=== PATIENT | male | born 1990 | race Caucasian/White ===

== ENCOUNTER 2023-01-10 00:09 | Emergency (ER) | payer BC, SELFPAY ==
[2023-01-10 00:13] VITALS: BP 158/92; BP 176/105; PULSE 92; PULSE 97; RESP 18; TEMP 36.7; O2SAT 97; O2SAT 98
--- NOTE | 2023-01-10 00:39 | CRLHL7_ITS ---
For Patients: As a result of the Cures Act, medical imaging exams and procedure reports are released immediately into your electronic medical record. You may view this report before your referring provider. If you have questions, please contact your health care provider. INDICATION: Fall, twisting, non-impact, knee injury TECHNIQUE: Knee radiograph 3 views left COMPARISON: None FINDINGS: Bone: No acute fractures or aggressive bone lesions are identified. Joint: The medial, lateral, and patellofemoral compartments are unremarkable. No significant knee effusion is seen. Soft tissue: Unremarkable. No radiopaque foreign bodies are seen. IMPRESSION: 1. No acute osseous injuries or abnormalities are noted. Dictated by: Mushtaq Srivastava MD @ 01/10/2023 01:13:05 (Electronically Signed)
--- NOTE | 2023-01-10 01:32 | ED.GENADULT ---
HPI - General Adult General Date Seen: 01/10/23 Chief complaint: Extremity Pain/Injury, Lower Stated complaint: left knee injury Time Seen by Provider: 01/10/23 00:26 Source: patient Mode of arrival: ambulatory Limitations: no limitations History of Present Illness HPI narrative: Patient is a 32-year-old male who is caring one of his children down a flight of stairs when he stepped on a dog toy and twisted his left knee. He did not fall to the ground. It is currently painful when he attempts to walk but is not been swollen. He was going to wait and see his PCP tomorrow but was unable to sleep so he came into the ER instead. He has a trip to [place] next week and is expected to do a lot of walking. The knee does not feel unstable. Related Data Allergies Allergy/AdvReac Type Severity Reaction Status Date / Time No Known Drug Allergies Allergy Verified 01/10/23 00:15 Review of Systems Narrative: Review of systems is outlined above otherwise noted to be negative. PFSH PFSH Social History Non-prescribed substance use: denies use Exam Narrative: Exam Narrative: Vitals noted, blood pressure is elevated. Examination of the left knee shows no outward evidence of injury. No bruising or swelling. No knee effusion. There is some tenderness along the medial joint line. There is some tenderness with valgus stressing but no laxity. Anterior and posterior drawer signs are negative. Viv's testing is negative. Const: Vital Signs, click to edit/add: Vital Signs - 24 hr 01/10/23 00:13 Temperature 98.1 F Pulse Rate [Left P ulse Oximeter] 97 Respiratory Rate 18 Blood Pressure [Ri ght Upper Arm] 176/105 H Pulse Oximetry 97 Oxygen Delivery Me thod Room Air Course Course Hospital Course: Patient seen and examined. X-ray of his left knee is unremarkable. He is able ambulate without difficulty. Vital Signs Vital signs: Initial Vital Signs Temperature 98.1 F 01/10/23 00:13 Temperature Source Tympanic 01/10/23 00:13 Pulse Rate 97 01/10/23 00:13 Pulse Rhythm Regular 01/10/23 00:13 Respiratory Rate 18 01/10/23 00:13 Blood Pressure 176/105 H 01/10/23 00:13 Blood Pressure Mean 128 H 01/10/23 00:13 Blood Pressure Position Sitting 01/10/23 00:13 Pulse Oximetry 97 01/10/23 00:13 Oxygen Delivery Method Room Air 01/10/23 00:13 Vital Signs Temperature 98.1 F 01/10/23 00:13 Pulse Rate 97 01/10/23 00:13 Respiratory Rate 18 01/10/23 00:13 Blood Pressure 176/105 H 01/10/23 00:13 Pulse Oximetry 97 01/10/23 00:13 Oxygen Delivery Method Room Air 01/10/23 00:13 Temperature 98.1 F 01/10/23 00:13 Pulse Rate 97 01/10/23 00:13 Respiratory Rate 18 01/10/23 00:13 Blood Pressure 176/105 H 01/10/23 00:13 Pulse Oximetry 97 01/10/23 00:13 Oxygen Delivery Method Room Air 01/10/23 00:13 Medical Decision Making MDM Narrative Medical decision making narrative: We discussed the typical symptoms of meniscus tear. Hopefully this is just a sprain that will get better over the next few days on its own. If he has mechanical symptoms, effusion, worsening pain he will follow-up with his PCP to discuss further imaging. Also encouraged him to have his blood pressure recheck to few times. Discharge Plan Discharge Clinical Impression: Injury of knee, left Patient Disposition: Home, Self-Care Condition: Stable Additional Instructions: Ice, elevate, Ibuprofen 600 mg three times daily. If not improving or if you have mechanical symptoms (locking, popping, buckling) follow up with Dr Hunt to discuss an MRI to look for cartilage tear. Stand Alone Forms: [facility] Info Instructions
== END 2023-01-10 01:33 | disposition home or self-care (01) ==
LOC: ED 01:28
PROVIDERS: Emergency Provider Family Medicine
DX: S89.92XA Unspecified injury of left lower leg, initial encounter (principal); W22.8XXA Striking against or struck by other objects, initial encounter
CPT/HCPCS: 73562; 99281; 99283